=== PATIENT | female | born 2000 ===

== ENCOUNTER 2022-06-22 18:10 | Emergency (ER) | payer SELFPAY ==
[~2022-06-22] VITALS: Ht 165 cm; Wt 65.9 kg
[2022-06-22 18:23] VITALS: TEMP 98.7
[2022-06-22] MEDS ORDERED: ASPIRIN 81M81 MG/TA2 PO (18:27)
[2022-06-22 18:50] LABS: BASO # 0.1 K/mm3 (0.0-0.2); BASO % 0.6 % (0.0-2.0); EOS # 0.2 K/mm3 (0.0-0.7); EOS % 1.4 % (0.0-4.0); HEMATOCRIT 40.4 % (37.0-47.0); HEMOGLOBIN 13.6 g/dl (12.5-16.0); LYMPH # 2.5 K/mm3 (1.2-3.4); LYMPH % 21.5 % (20.0-51.0); MEAN CELL VOLUME 85 fl (80.0-100.0); MEAN CORPUSCULAR HEMOGLOBIN 29 pg (27-31); MEAN CORPUSCULAR HGB CONC 34 g/dl (33.0-37.0); MEAN PLATELET VOLUME 11.3 fl (7.4-10.4); MONO # 0.9 K/mm3 (0.1-0.6); PLATELET COUNT 234 K/mm3 (130-400); RED BLOOD COUNT 4.77 M/mm3 (4.10-5.30)
[2022-06-22 19:03] LABS: BILIRUBIN,TOTAL 0.3 mg/dL (0.2-1.2); C-REACTIVE PROTEIN 0.07 mg/dL (0.00-0.50); CALCIUM 9.3 mg/dL (8.4-10.2); CREATININE, serum 0.71 mg/dL (0.57-1.11); POTASSIUM 3.3 mmol/L (3.5-4.5); TOTAL PROTEIN 7.8 gm/dL (6.2-8.1)
[2022-06-22 19:36] LABS: COLLECTION METHOD CLEAN CATCH
[2022-06-22 19:45] LABS: URINE APPEARANCE Clear (CLEAR/HAZY); URINE COLOR Straw (YELLOW)
[2022-06-22 19:46] LABS: PH 5.5 (5.0-8.5); URINE GLUCOSE Negative (NEGATIVE); URINE KETONE Negative (NEGATIVE); URINE NITRATE Negative (NEGATIVE); URINE PROTEIN(semi-quant) Negative (NEGATIVE); URINE UROBILINOGEN 0.2 E.U/dL (0.2-1.0)
[2022-06-22 19:47] LABS: URINE BLOOD TRACE-INTACT (NEGATIVE)
[2022-06-22 19:50] LABS: AMORPHOUS CRYSTAL Present (NOT PRESENT); URINE BACTERIA Many /hpf (NONE SEEN)
[2022-06-22 20:11] LABS: COLLECTION METHOD CATHETER
[2022-06-22 20:22] LABS: SQUAMOUS EPITHELIAL 0-2 /hpf (0-10); URINE BACTERIA Rare /hpf (NONE SEEN); URINE RBC 0-2 /hpf (0-2)
[2022-06-22 20:24] LABS: URINE APPEARANCE Clear (CLEAR/HAZY); URINE BLOOD TRACE-INTACT (NEGATIVE); URINE COLOR Colorless (YELLOW); URINE GLUCOSE Negative (NEGATIVE); URINE KETONE Negative (NEGATIVE); URINE NITRATE Negative (NEGATIVE); URINE PROTEIN(semi-quant) Negative (NEGATIVE); URINE UROBILINOGEN 0.2 E.U/dL (0.2-1.0)
[2022-06-22 22:28] VITALS: BP 126/75; PULSE 74
[2022-06-23] MEDS ORDERED: CEPHALEXIN500 M1 PO (11:54)
== END 2022-06-22 22:27 | disposition home or self-care (01) ==
LOC: COL.ER 18:10
PROVIDERS: Nurse Practitioner
DX: R10.84 Generalized abdominal pain (principal); R11.2 Nausea with vomiting, unspecified; Z20.822 Contact with and (suspected) exposure to COVID-19; Z28.311 Partially vaccinated for COVID-19
CPT/HCPCS: J2060; J2405; J7030; Q9967

== ENCOUNTER 2023-01-23 16:04 | Emergency (ER) | payer SELFPAY ==
[~2023-01-23] VITALS: Ht 170 cm; Wt 68.2 kg
[~2023-01-23 16:04] MED LIST: ASPIRIN 81M81 MG/TA2 PO; CEPHALEXIN500 M1 PO
[2023-01-23 16:07] VITALS: BP 113/60; TEMP 98.6
[2023-01-23] MEDS ORDERED: NORCO 325 MG-51 TAB PO (16:46)
[2023-01-23] MEDS ORDERED: CRUTCHES MC (16:46)
[2023-01-23 17:18] VITALS: PULSE 65
== END 2023-01-23 17:18 | disposition home or self-care (01) ==
LOC: COL.ER 16:04
DX: S90.31XA Contusion of right foot, initial encounter (principal); W20.8XXA Other cause of strike by thrown, projected or falling object, initial encounter; Y92.59 Other trade areas as the place of occurrence of the external cause; Y99.0 Civilian activity done for income or pay

== ENCOUNTER 2023-02-06 13:54 | Outpatient (RCR) | payer OTHER ==
[~2023-02-06 13:54] MED LIST changes: +CRUTCHES MC; +NORCO 325 MG-51 TAB PO
== END 2023-02-08 | disposition home or self-care (01) ==
LOC: WSOH
DX: S90.31XA Contusion of right foot, initial encounter (principal); Y99.0 Civilian activity done for income or pay

== ENCOUNTER 2024-02-19 08:26 | Emergency (ER) | payer SELFPAY ==
[2024-02-19 08:28] VITALS: TEMP 98.5
[2024-02-19] MEDS ORDERED: NS 1,000 ML IV ONE (08:45)
[2024-02-19 08:53] LABS: BASO % 0.6 % (0.0-2.0); EOS # 0.2 K/mm3 (0.0-0.7); GRAN # 3.8 K/mm3 (1.4-6.5); GRAN % 57.3 % (42.2-75.2); LYMPH % 30.6 % (20.0-51.0); MEAN CELL VOLUME 87 fl (80.0-100.0); MEAN CORPUSCULAR HEMOGLOBIN 29 pg (27-31); MEAN CORPUSCULAR HGB CONC 33 g/dl (33.0-37.0); MEAN PLATELET VOLUME 11.2 fl (7.4-10.4); MONO # 0.5 K/mm3 (0.1-0.6); MONO % 8.2 % (1.7-9.3); PLATELET COUNT 215 K/mm3 (130-400); RED BLOOD COUNT 4.48 M/mm3 (4.10-5.30); REDCELL DISTRIBUTION WIDTH-CV 13.6 % (11.5-14.5)
[2024-02-19 09:08] LABS: ALANINE AMINOTRANSFERASE 17 U/L (0-55); ALKALINE PHOSPHATASE 67 U/L (40-150); ANION GAP 10 mmol/L (7-16); AST,SGOT 14 U/L (5-34); BILIRUBIN,TOTAL 0.5 mg/dL (0.2-1.2); BLOOD UREA NITROGEN 13 mg/dL (7-19); CALCIUM 9.6 mg/dL (8.4-10.2); CHLORIDE 111 mEq/L (98-107); CREATININE, serum 0.68 mg/dL (0.57-1.11); GLUCOSE 94 mg/dL (70-99); MAGNESIUM 1.5 mg/dL (1.6-2.6); POTASSIUM 3.5 mEq/L (3.5-4.5); SODIUM 139 mEq/L (136-145); TOTAL PROTEIN 7.6 g/dl (6.2-8.1)
[2024-02-19 09:28] LABS: TSH w REFLEX 0.656 uIU/mL (0.350-4.940)
[2024-02-19 09:29] LABS: TROPONIN-I < 0.010 ng/mL (0.00-0.033)
[2024-02-19 09:48] VITALS: BP 121/82; PULSE 71
== END 2024-02-19 10:05 | disposition home or self-care (01) ==
LOC: COL.ER 08:26
PROVIDERS: Emergency Medicine
DX: I47.9 Paroxysmal tachycardia, unspecified (principal)
CPT/HCPCS: J7030